=== PATIENT | male | born 1995 | race Hispanic/Latino ===

== ENCOUNTER 2022-08-13 04:53 | Emergency (ER) | payer SELFPAY ==
[2022-08-13] MEDS ORDERED: ONDANSETRON 4 MG/2 ML VIAL ONE (05:36)
[2022-08-13] MEDS ORDERED: NA CHLORIDE 0.9% 1,000 ML ONE ×2 (05:36→07:31)
[2022-08-13] MEDS ORDERED: FAMOTIDINE 20 MG/2 ML VIAL IV ONE (05:36)
[2022-08-13] MEDS ORDERED: KETOROLAC 30 MG/ML INJ ONE (05:55)
[2022-08-13 06:13] LABS: Absolute Lymphocytes (CBC) 1.1 K/uL (0.7-4.9); Hematocrit 47.9 % (39.6-49.0); Lymphocytes % 7.7 % (15.3-44.8); MCV 84.3 fL (80-100); MPV 8.1 fL (7.6-11.3); RBC Red Blood Cell Count 5.68 M/uL (4.33-5.43)
[2022-08-13 06:33] LABS: Albumin 4.6 g/dL (3.4-5.0); Bilirubin Total 0.6 mg/dL (0.2-1.0); Potassium 3.7 mmol/L (3.5-5.1); Protein, Total 7.5 g/dL (6.4-8.2)
--- NOTE | 2022-08-13 07:27 | EDPHYS ---
Physician Documentation [facility] Name: Jj Klein Age: 27 yrs Sex: Male : 1995 Arrival Date: 08/13/2022 Time: 04:58 Bed 6 Private MD: ED Physician Reginaldo Barajas HPI: 08/13 05:37 This 27 yrs old Male presents to ER via Ambulatory with complaints of susy Abdominal Pain, Vomiting. 05:37 The patient presents to the emergency department with nausea, vomiting, that is susy intermittent. Onset: The symptoms/episode began/occurred just prior to arrival, this morning. Possible causes: unknown. The symptoms are aggravated by nothing. The symptoms are alleviated by nothing. Associated signs and symptoms: The patient has no apparent associated signs or symptoms. Severity of symptoms: At their worst the symptoms were. The patient has not experienced similar symptoms in the past. Historical: - Allergies: 05:27 No Known Allergies; vc1 - Home Meds: 05:27 None [Active]; vc1 - PMHx: 05:27 None; vc1 - PSHx: 05:27 None; vc1 - Immunization history:: Client reports receiving the 1st dose of the Covid vaccine. - Social history:: Smoking status: Patient denies any tobacco usage or history of. ROS: 05:38 Constitutional: Negative for fever, chills, and weight loss, Eyes: Negative for injury, susy pain, redness, and discharge, ENT: Negative for injury, pain, and discharge, Neck: Negative for injury, pain, and swelling, Cardiovascular: Negative for chest pain, palpitations, and edema, Respiratory: Negative for shortness of breath, cough, wheezing, and pleuritic chest pain, Back: Negative for injury and pain, : Negative for injury, bleeding, discharge, and swelling, MS/Extremity: Negative for injury and deformity, Skin: Negative for injury, rash, and discoloration, Neuro: Negative for headache, weakness, numbness, tingling, and seizure, Psych: Negative for depression, anxiety, suicide ideation, homicidal ideation, and hallucinations, Allergy/Immunology: Negative for hives, rash, and allergies, Endocrine: Negative for neck swelling, polydipsia, polyuria, polyphagia, and marked weight changes, Hematologic/Lymphatic: Negative for swollen nodes, abnormal bleeding, and unusual bruising. 05:38 Abdomen/GI: Positive for abdominal pain, nausea and vomiting, abdominal cramps, of the anterior aspect of right lateral abdomen, posterior aspect of right lateral abdomen and right lower quadrant. Exam: 05:38 Constitutional: This is a well developed, well nourished patient who is awake, alert, susy and in no acute distress. Head/Face: Normocephalic, atraumatic. Eyes: Pupils equal round and reactive to light, extra-ocular motions intact. Lids and lashes normal. Conjunctiva and sclera are non-icteric and not injected. Cornea within normal limits. Periorbital areas with no swelling, redness, or edema. ENT: Nares patent. No nasal discharge, no septal abnormalities noted. Tympanic membranes are normal and external auditory canals are clear. Oropharynx with no redness, swelling, or masses, exudates, or evidence of obstruction, uvula midline. Mucous membranes moist. Neck: Trachea midline, no thyromegaly or masses palpated, and no cervical lymphadenopathy. Supple, full range of motion without nuchal rigidity, or vertebral point tenderness. No Meningismus. Chest/axilla: Normal chest wall appearance and motion. Nontender with no deformity. No lesions are appreciated. Cardiovascular: Regular rate and rhythm with a normal S1 and S2. No gallops, murmurs, or rubs. Normal PMI, no JVD. No pulse deficits. Respiratory: Lungs have equal breath sounds bilaterally, clear to auscultation and percussion. No rales, rhonchi or wheezes noted. No increased work of breathing, no retractions or nasal flaring. Back: No spinal tenderness. No costovertebral tenderness. Full range of motion. Male : Normal genitalia with no discharge or lesions. Skin: Warm, dry with normal turgor. Normal color with no rashes, no lesions, and no evidence of cellulitis. MS/ Extremity: Pulses equal, no cyanosis. Neurovascular intact. Full, normal range of motion. Neuro: Awake and alert, GCS 15, oriented to person, place, time, and situation. Cranial nerves II-XII grossly intact. Motor strength 5/5 in all extremities. Sensory grossly intact. Cerebellar exam normal. Normal gait. Psych: Awake, alert, with orientation to person, place and time. Behavior, mood, and affect are within normal limits. 05:38 Abdomen/GI: Inspection: abdomen appears normal, Bowel sounds: normal, Palpation: abdomen is soft and non-tender, Liver: no appreciated palpable abnormalities, Hernia: not appreciated. Vital Signs: 05:24 BP 148 / 86; Pulse 100; Resp 18; Temp 98.4(O); Pulse Ox 99% on R/A; Weight 111.13 kg vc1 (R); Height 5 ft. 9 in. (175.26 cm) (R); Pain 7/10; 07:46 BP 147 / 85 LA Sitting (auto/lg); Pulse 98 LA; Resp 18 S; Temp 98.2(O); Pulse Ox 98% on kc6 R/A; Pain 2/10; 08:43 BP 142 / 82; Pulse 89; Resp 18 S; Pulse Ox 98% on R/A; kc6 05:24 Body Mass Index 36.18 (111.13 kg, 175.26 cm) vc1 MDM: 05:21 Patient medically screened. [facility] 05:39 Differential diagnosis: nephrolithiasis, pyelonephritis, Nonspecific abd pain, susy cholecystitis, pancreatitis, diverticulitis, viral gastroenteritis, gastroenteritis. Data reviewed: vital signs, nurses notes, lab test result(s), radiologic studies, CT scan. Data interpreted: pole shaver: rate is 100 beats/min, rhythm is regular, Pulse oximetry: on room air is 99 %. Counseling: I had a detailed discussion with the patient and/or guardian regarding: the historical points, exam findings, and any diagnostic results supporting the discharge/admit diagnosis, lab results, radiology results, the need for outpatient follow up, for definitive care, a family practitioner, a urologist. 08/13 05:21 Order name: CBC with Diff; Complete Time: 07:[address] [facility] 08/13 05:21 Order name: CMP; Complete Time: 07:[address] [facility] 08/13 05:21 Order name: Lipase; Complete Time: 07:[address] [facility] 08/13 05:36 Order name: CT Stone Protocol [facility] 08/13 07:29 Order name: Urine Dipstick-Ancillary EDOK 08/13 05:21 Order name: IV Saline Lock; Complete Time: 05:[address] [facility] 08/13 05:21 Order name: Labs collected and sent; Complete Time: 05:[address] [facility] 08/13 05:21 Order name: Urine Dipstick-Ancillary (obtain specimen); Complete Time: 07:47 susy Administered Medications: 05:36 Not Given (Duplicate Order): Pepcid (famotidine) 20 mg IVP once; dilute with 10 mL 0.9% susy NaCl; give over 2 minutes 05:51 Drug: Zofran (Ondansetron) 4 mg Route: IVP; Site: left antecubital; ll3 06:51 Follow up: Response: No adverse reaction; Nausea is decreased kc6 05:52 Drug: NS 0.9% 1000 ml Route: IV; Rate: 1 bolus; Site: left antecubital; ll3 06:52 Follow up: Response: No adverse reaction; IV Status: Completed infusion; IV Intake: kc6 1000ml 05:55 Drug: Pepcid (famotidine) 20 mg Route: IVP; Site: left antecubital; ll3 06:55 Follow up: Response: No adverse reaction kc6 05:57 Drug: Ketorolac 30 mg Route: IVP; Site: left antecubital; ll3 06:57 Follow up: Response: No adverse reaction; Pain is decreased kc6 07:45 Drug: Flomax (tamsulosin) 0.4 mg Route: PO; kc6 08:45 Follow up: Response: No adverse reaction kc6 07:45 Drug: Rocephin (cefTRIAXone) 1 grams Route: IV; Rate: per protocol; Site: left kc6 antecubital; 08:45 Follow up: Response: No adverse reaction; IV Status: Completed infusion; IV Intake: [id number] 07:45 Drug: NS 0.9% 1000 ml Route: IV; Rate: 1 bolus; Site: left antecubital; kc6 08:52 Follow up: Response: No adverse reaction; IV Status: Completed infusion; IV Intake: kc6 1000ml Disposition Summary: 08/13/22 07:27 Discharge Ordered Location: Home susy Problem: new susy Symptoms: have improved susy Condition: Stable susy Diagnosis - Hydronephrosis with renal and ureteral calculous obstruction - 3mm right uvj susy Followup: susy - With: Private Physician - When: 2 - 3 days - Reason: Recheck today's complaints, Continuance of care, Re-evaluation by your physician Followup: susy - With: - When: 2 - 3 days - Reason: Recheck today's complaints, Continuance of care, Re-evaluation by your physician Discharge Instructions: - Discharge Summary Sheet susy - Kidney Stones susy - Kidney Stones, [id number] susy - Hydronephrosis susy - Dietary Guidelines to Help Prevent Kidney Stones [facility] Forms: - Medication Reconciliation Form [facility] - Thank You Letter susy - Antibiotic Education susy - Prescription Opioid Use [facility] - Work release form kc6 Prescriptions: - Flomax 0.4 mg Oral capsule - take 1 capsule by ORAL route once daily 1/2 hour following the same meal each [facility] day; 20 capsule; Refills: 0, Product Selection Permitted - Zofran 4 mg Oral Tablet - take 1 tablet by ORAL route every 12 hours As needed; 20 tablet; Refills: 0, [facility] Product Selection Permitted - Cipro 500 mg Oral Tablet - take 1 tablet by ORAL route every 12 hours for 7 days; 14 tablet; Refills: 0, [facility] Product Selection Permitted - Tylenol-Codeine #3 300 mg-30 mg Oral - take 2 tablet by ORAL route every 6 hours; 20 tablet; Refills: 0, Product [facility] Selection Permitted Signatures: Dispatcher [employer] Reginaldo Kemp MD MD cha Loubet, Lynsea, RN RN ll3 Nydia Valadez RN RN vc1 Zeny Luciano RN RN kc6
--- NOTE | 2022-08-13 07:27 | ER ---
Nurse's Notes [facility] Name: Jj Klein Age: 27 yrs Sex: Male : 1995 Arrival Date: 08/13/2022 Time: 04:58 Bed 6 Private MD: Diagnosis: Hydronephrosis with renal and ureteral calculous obstruction-3mm right uvj Presentation: 08/13 05:24 Chief complaint: Patient states: "About 6 pm last night I started having really bad vc1 pain in my stomach, the best way I cant describe it is when you get hit in your private area the pain you get in your stomach is what it feels like but it is constant. It hurts so bad I threw up.". Coronavirus screen: Vaccine status: Patient reports receiving the 1st dose of the Covid vaccine. Pfizer. Ebola Screen: No symptoms or risks identified at this time. Initial Sepsis Screen: Does the patient meet any 2 criteria? HR > 90 bpm. No. Patient's initial sepsis screen is negative. Does the patient have a suspected source of infection? Yes: Acute abdominal pain. Risk Assessment: Do you want to hurt yourself or someone else? Patient reports no desire to harm self or others. Onset of symptoms was August 12, 2022 at 18:00. 05:24 Method Of Arrival: Ambulatory vc1 05:24 Acuity: KRISTIAN 3 vc1 Triage Assessment: 05:27 General: Appears in no apparent distress. Behavior is calm, cooperative, appropriate vc1 for age. Pain: Complains of pain in right lower quadrant Pain does not radiate. Pain currently is 7 out of 10 on a pain scale. at worst was 10 out of 10 on a pain scale. Quality of pain is described as sharp. EENT: No deficits noted. No signs and/or symptoms were reported regarding the EENT system. Neuro: Level of Consciousness is awake, alert, obeys commands, Oriented to person, place, time, situation, Appropriate for age. Cardiovascular: No deficits noted. Respiratory: Airway is patent Respiratory effort is even, unlabored, Respiratory pattern is regular, symmetrical. GI: Abdomen is flat, Reports lower abdominal pain, vomiting. : No deficits noted. Derm: No deficits noted. Musculoskeletal: No deficits noted. Historical: - Allergies: 05:27 No Known Allergies; vc1 - Home Meds: 05:27 None [Active]; vc1 - PMHx: 05:27 None; vc1 - PSHx: 05:27 None; vc1 - Immunization history:: Client reports receiving the 1st dose of the Covid vaccine. - Social history:: Smoking status: Patient denies any tobacco usage or history of. Screenin:29 Abuse screen: Denies threats or abuse. Nutritional screening: No deficits noted. vc1 Tuberculosis screening: No symptoms or risk factors identified. Fall Risk None identified. Assessment: 07:46 Reassessment: Patient appears in no apparent distress at this time. No changes from 6 previously documented assessment. Patient and/or family updated on plan of care and expected duration. Pain level reassessed. Patient is alert, oriented x 3, equal unlabored respirations, skin warm/dry/pink. client stated his pain is a 2/10 to the RLQ. discharge pending bolus completion. Patient states feeling better. Patient states symptoms have improved. 08:42 Reassessment: Patient appears in no apparent distress at this time. No changes from 6 previously documented assessment. Patient and/or family updated on plan of care and expected duration. Pain level reassessed. Patient is alert, oriented x 3, equal unlabored respirations, skin warm/dry/pink. discharge pending bolus completion. Patient states feeling better. Patient states symptoms have improved. 08:53 GI: Bowel sounds present X 4 quads. Abd is soft X 4 quads Abdomen is tender to kc6 palpation in right lower quadrant. Vital Signs: 05:24 BP 148 / 86; Pulse 100; Resp 18; Temp 98.4(O); Pulse Ox 99% on R/A; Weight 111.13 kg vc1 (R); Height 5 ft. 9 in. (175.26 cm) (R); Pain 7/10; 07:46 BP 147 / 85 LA Sitting (auto/lg); Pulse 98 LA; Resp 18 S; Temp 98.2(O); Pulse Ox 98% on kc6 R/A; Pain 2/10; 08:43 BP 142 / 82; Pulse 89; Resp 18 S; Pulse Ox 98% on R/A; kc6 05:24 Body Mass Index 36.18 (111.13 kg, 175.26 cm) 1 ED Course: 04:58 Patient arrived in ED. ja2 05:21 Reginaldo Barajas MD is Attending Physician. susy 05:27 Triage completed. vc1 05:29 Arm band placed on left wrist. vc1 06:14 CT Stone Protocol In Process Unspecified. EDMS 07:08 Francesco Hsu RN is Primary Nurse. jd3 07:26 Reginaldo Mcallister MD is Referral Physician. susy 08:53 Patient has correct armband on for positive identification. Bed in low position. Call kc6 light in reach. Side rails up X2. Adult w/ patient. 08:53 No provider procedures requiring assistance completed. IV discontinued, intact, kc6 bleeding controlled, No redness/swelling at site. Pressure dressing applied. Administered Medications: 05:36 Not Given (Duplicate Order): Pepcid (famotidine) 20 mg IVP once; dilute with 10 mL 0.9% susy NaCl; give over 2 minutes 05:51 Drug: Zofran (Ondansetron) 4 mg Route: IVP; Site: left antecubital; ll3 06:51 Follow up: Response: No adverse reaction; Nausea is decreased kc6 05:52 Drug: NS 0.9% 1000 ml Route: IV; Rate: 1 bolus; Site: left antecubital; ll3 06:52 Follow up: Response: No adverse reaction; IV Status: Completed infusion; IV Intake: kc6 1000ml 05:55 Drug: Pepcid (famotidine) 20 mg Route: IVP; Site: left antecubital; ll3 06:55 Follow up: Response: No adverse reaction kc6 05:57 Drug: Ketorolac 30 mg Route: IVP; Site: left antecubital; ll3 06:57 Follow up: Response: No adverse reaction; Pain is decreased kc6 07:45 Drug: Flomax (tamsulosin) 0.4 mg Route: PO; kc6 08:45 Follow up: Response: No adverse reaction kc6 07:45 Drug: Rocephin (cefTRIAXone) 1 grams Route: IV; Rate: per protocol; Site: left kc6 antecubital; 08:45 Follow up: Response: No adverse reaction; IV Status: Completed infusion; IV Intake: [id number] 07:45 Drug: NS 0.9% 1000 ml Route: IV; Rate: 1 bolus; Site: left antecubital; kc6 08:52 Follow up: Response: No adverse reaction; IV Status: Completed infusion; IV Intake: kc6 1000ml Medication: 08:54 VIS not applicable for this client. kc6 Intake: 06:52 IV: 1000ml; Total: 1000ml. kc6 08:45 IV: 10ml; Total: 1010ml. kc6 08:52 IV: 1000ml; Total: 2010ml. kc6 Outcome: 07:27 Discharge ordered by . susy 08:53 Discharged to home ambulatory, with significant other. kc6 08:53 Condition: stable 08:53 Discharge instructions given to patient, family, Instructed on discharge instructions, follow up and referral plans. medication usage, Demonstrated understanding of instructions, follow-up care, medications, Prescriptions given X 4. 08:54 Patient left the ED. kc6 Signatures: Dispatcher [employer] EDMS Reginaldo Barajas MD MD cha Davies, Jonathon, RN RN jd3 Marie Solano Lynsea, RN RN ll3 Nydia Valadez RN RN vc1 Zeny Luciano RN RN kc6
[2022-08-13 07:29] LABS: Urine Blood Trace-intact (Negative); Urine Glucose Negative (Negative); Urine Protein 1+ (Negative); Urine Specific Gravity 1.025 (1.005-1.030); Urine pH 6.5 (5.0-7.0)
[2022-08-13] MEDS ORDERED: TAMSULOSIN 0.4 MG SR CAP ONE (07:30)
[2022-08-13] MEDS ORDERED: CEFTRIAXONE 1000 MG/VIAL ONE (07:31)
[2022-08-13 08:59] VITALS: TEMP 98.2; O2SAT 98
[2022-08-13 09:01] VITALS: BP 142/82
--- NOTE | 2022-08-13 10:13 | RAD REPORT ---
EXAM DESCRIPTION: CT - Stone Protocol - 08/13/2022 6:12 am COMPARISON: None. CLINICAL HISTORY: [facility] MAIN Flank pain, kidney stone suspected TECHNIQUE: CT of the abdomen and pelvis was acquired without IV contrast material. Coronal and sag ittal reconstructions were obtained. Automated exposure control was utilized on this examination as a dose lowering technique. FINDINGS: Lung bases: Clear. *Evaluation of solid organs is limited due to lack of IV contrast. Liver: Mild hepatic steatosis. Gallbladder and biliary: Small dependent gallstones. Unremarkable biliary tree. Pancreas: Normal. Spleen: Normal. Adrenal glands: Normal adrenal glands. Kidneys: 3 mm obstructing calculus at the right ureterovesicular junction with mild right hydronephro sis. Additional nonobstructing punctate right renal calculus is noted. Stomach and Small Bowel: The stomach and small bowel are normal. Urinary bladder: Normal. Prostate/Male Urogenital: Normal. Colon and Appendix: The colon is unremarkable. No evidence of appendicitis. Retroperitoneum and lymph nodes: Normal. Vascular: Unremarkable. Peritoneal cavity: No ascites or free air. Musculoskeletal and soft tissues: Soft tissues are unremarkable. No aggressive bone lesions. No com pression fracture. IMPRESSION: 1. 3 mm obstructing calculus at the right ureterovesicular junction with mild right hydr onephrosis. An additional nonobstructing punctate right renal calculus is noted. 2. Mild hepatic steatosis. 3. Cholelithiasis. Electronically signed by: Dennis Mayes MD 08/13/2022 6:33 AM CDT Due to temporary technical issues with the PACS/Fluency reporting system, reports are being signed by the in house radiologists without review as a courtesy to insure prompt reporting. The interpreting radiologist is fully responsible for the content of the report.
== END 2022-08-13 08:54 | disposition home or self-care (01) ==
LOC: ER 04:53
DX: N13.2 Hydronephrosis with renal and ureteral calculous obstruction (principal)
CPT/HCPCS: 36415; 74176; 76377; 80053; 81003; 83690; 85025; 96361; 96365; 96375; 99283; J2405; J7030